=== PATIENT | female | born 1980 | race Caucasian/White ===

== ENCOUNTER 2018-10-22 17:14 | Emergency (ER) | payer BC ==
[~2018-10-22] VITALS: Ht 170.2 cm; Wt 129.3 kg
[~2018-10-22 17:14] MED LIST: BENADRYL25 MG PO; DEPAKOTE ER500 MG PO; EXCEDRIN MIGRA1 EAC1 PO; FLOMAX0.4 MG PO; HYDROCODON-ACE1 EAC7 PO; NORCO 5-325 TA1 EACH PO; PERCOCET 7.5-31 EACH PO; PROPRANOLOL 8080 MG PO; TOPAMAX 25 MG T25 M1 PO; ZOFRAN ODT4 MG SUBLING; ZOFRAN4 MG PO; ZOMIG2.5 MG
[2018-10-22 17:50] LABS: MCHC 35.1 g/dL (28.0-37.0)
[2018-10-22 17:52] LABS: HEMATOCRIT 41.4 % (37.0-47.0); HEMOGLOBIN 14.5 gm/dL (12.0-15.0); MCH 32.6 pg (26.0-34.0); MCV 92.9 fL (80.0-100.0); PLATELET COUNT 293 thou/uL (150-400); RBC 4.46 mil/uL (4.20-5.00); RDW 12.8 % (10.5-14.5); WBC 8.1 thou/uL (4.0-11.0)
[2018-10-22 17:57] LABS: ANION GAP 12 mmol/L (7-16); BUN 9 mg/dL (7-18); CHLORIDE 102 mmol/L (98-107); CO2 24 mmol/L (21-32); CREATININE 0.9 mg/dL (0.6-1.0); GLUCOSE 109 mg/dL (74-106); POTASSIUM 3.9 mmol/L (3.5-5.1); SODIUM 138 mmol/L (136-145)
[2018-10-22 18:02] LABS: ALBUMIN 3.4 g/dL (3.4-5.0); DIRECT BILIRUBIN < 0.1 mg/dL (<0.1-0.3); LIPASE 111 U/L (73-393); SGOT 14 U/L (15-37); SGPT 38 U/L (30-65); TOTAL BILIRUBIN 0.2 mg/dL (<0.1-1.0)
[2018-10-22 18:11] LABS: URINE BILIRUBIN NEGATIVE (Negative); URINE BLOOD NEGATIVE (Negative); URINE CLARITY CLEAR; URINE COLOR YELLOW; URINE GLUCOSE-RANDOM* NEGATIVE (Negative); URINE KETONES NEGATIVE (Negative); URINE LEUKOCYTES TRACE (Negative); URINE NITRITE NEGATIVE (Negative); URINE PROTEIN (DIPSTICK) NEGATIVE (Negative); URINE SPECIFIC GRAVITY 1.025 (1.005-1.035); URINE UROBILINOGEN 0.2 E.U./dl (0.2-1.0)
[2018-10-22 18:14] LABS: ABSOLUTE NEUTROPHILS 4.3 thou/uL (1.4-8.2)
[2018-10-22] MEDS ORDERED: NORCO 5-325 TA1 EACH PO (19:59)
[2018-10-22] MEDS ORDERED: ZOFRAN ODT4 MG PO (19:59)
[2018-10-22 20:25] VITALS: BP 132/67
== END 2018-10-22 20:25 | disposition home or self-care (01) ==
LOC: ER 17:14
PROVIDERS: Emergency Medicine
DX: R10.84 Generalized abdominal pain (principal); F17.210 Nicotine dependence, cigarettes, uncomplicated; G43.909 Migraine, unspecified, not intractable, without status migrainosus; Z88.8 Allergy status to other drugs, medicaments and biological substances; Z88.2 Allergy status to sulfonamides; Z98.890 Other specified postprocedural states; Z90.49 Acquired absence of other specified parts of digestive tract

== ENCOUNTER 2021-11-08 14:12 | Emergency (ER) | payer BC ==
[~2021-11-08] VITALS: Ht 170.2 cm; Wt 139.7 kg
[~2021-11-08 14:12] MED LIST changes: +ZOFRAN ODT4 MG PO
[2021-11-08 14:45] LABS: URINE BILIRUBIN NEGATIVE (Negative); URINE BLOOD NEGATIVE (Negative); URINE CLARITY SL CLOUDY; URINE COLOR YELLOW; URINE GLUCOSE-RANDOM* NEGATIVE (Negative); URINE KETONES NEGATIVE (Negative); URINE LEUKOCYTES-REFLEX NEGATIVE (Negative); URINE NITRITE-REFLEX NEGATIVE (Negative); URINE PROTEIN (DIPSTICK) NEGATIVE (Negative); URINE SPECIFIC GRAVITY >= 1.030 (1.005-1.035); URINE UROBILINOGEN 0.2 E.U./dl (0.2-1.0)
[2021-11-08 14:55] LABS: ABSOLUTE NEUTROPHILS 4.6 thou/uL (1.4-8.2); BASOPHILS 0.2 % (0.0-2.0); HEMATOCRIT 42.6 % (37.0-47.0); HEMOGLOBIN 14.6 gm/dL (12.0-15.0); LYMPHOCYTES 37.5 % (24.0-44.0); MCH 32.8 pg (26.0-34.0); MCHC 34.2 g/dL (28.0-37.0); MCV 95.9 fL (80.0-100.0); MONOCYTES 4.6 % (1.0-8.0); PLATELET COUNT 375 thou/uL (150-400); POLYS 55.7 % (36.0-66.0); RBC 4.45 mil/uL (4.20-5.00); RDW 12.5 % (10.5-14.5); WBC 8.3 thou/uL (4.0-11.0)
[2021-11-08 15:03] LABS: CALCIUM 9.3 mg/dL (8.5-10.1); CREATININE 0.8 mg/dL (0.6-1.0); POTASSIUM 3.7 mmol/L (3.5-5.1)
[2021-11-08 15:08] LABS: AMP/METHAMP Negative (Negative); BARBITURATES Negative (Negative); BENZODIAZEPINES Negative (Negative); COCAINE Negative (Negative); METHADONE Negative (Negative); OPIATES POSITIVE (Negative); PCP Negative (Negative)
[2021-11-08 15:11] LABS: ALBUMIN 3.5 g/dL (3.4-5.0); TOTAL BILIRUBIN 0.4 mg/dL (0.2-1.0); TOTAL PROTEIN 7.4 g/dL (6.4-8.2)
[2021-11-08 17:04] VITALS: BP 123/79
--- NOTE | 2021-11-09 07:46 | EKG ---
[address] [place] [address] ELECTROCARDIOGRAM REPORT Name: TIMBO MCKNIGHT Room #: [facility]#: [id number] Admission: 11/08/21 Attend Phys: Discharge: 11/08/21 Date of : 76 Report #: [id number] [facility] ED Test Date: 2021-11-08 Test Time: 14:28:51 Pat Name: TIMBO MCKNIGHT Department: Room: Gender: F Editorial Specialist: LEFTY : 1980 Requested By: Estephania Caraballo Order Number: [id number] MD: Jose Galarza Measurements Intervals [place] Rate: 82 P: -12 NC: 154 QRS: 4 QRSD: 101 T: 17 QT: 382 QTc: 446 Interpretive Statements Sinus rhythm Poor R wave progression Nonspecific T abnormalities, anterior leads Compared to ECG 05/12/2014 17:30:34 Poor R wave progression is now present Electronically Signed On 11-09-2021 7:46:09 DOCUMENT CONTROL SUPERVISOR by Jose Galarza [email or web address] <ELECTRONICALLY SIGNED> By: Jose Galarza MD, [facility] 11/09/21 0746 1428 1428 Jose Galarza MD, FACC /EPI
== END 2021-11-08 17:05 | disposition home or self-care (01) ==
LOC: ER 14:12
PROVIDERS: Emergency Medicine
DX: R55 Syncope and collapse (principal); G43.909 Migraine, unspecified, not intractable, without status migrainosus; F17.210 Nicotine dependence, cigarettes, uncomplicated; Z90.49 Acquired absence of other specified parts of digestive tract; Z98.890 Other specified postprocedural states; Z79.899 Other long term (current) drug therapy; Z88.2 Allergy status to sulfonamides; Z88.6 Allergy status to analgesic agent; Z88.8 Allergy status to other drugs, medicaments and biological substances